=== PATIENT | male | born 1990 | race African-American/Black ===

== ENCOUNTER 2017-02-18 12:24 | Emergency (ER) | payer SELFPAY ==
[~2017-02-18] VITALS: Ht 180.3 cm; Wt 69.0 kg
[~2017-02-18 12:24] MED LIST: BACT800T5 PO; IBUP800T23 PO; METR500T10 PO
[2017-02-18 12:28] VITALS: BP 138/79; PULSE 14; PULSE 74; RESP 12; TEMP 98.5; O2SAT 99
[2017-02-18 12:49] LABS: GLUCOSE,URINE NEG (NEG); KETONE, URINE NEG (NEG); NITRITE,URINE NEG (NEG)
[2017-02-18 12:51] LABS: BLOOD, URINE MOD (NEG)
--- NOTE | 2017-02-18 12:56 | PD ---
HPI Chief Complaint: Complaint Time Seen by Provider: 12:47 Travel History International Travel<30 days: No Contact w/Intl Traveler<30days: No Traveled to known affect area: No History of Present Illness HPI This patient complains of some urethral discharge and dysuria for 2 days. Severity is mild. No alleviating factors. Denies fever or abdominal pain. PFSH Past Medical History Medical History: Denies Significant Hx Diminished Hearing: No Tetanus Vaccination: < 5 Years Influenza Vaccination: Yes Past Surgical History Surgical History: No Previous Surgery Social History Alcohol Use: No Tobacco Use: No Substance Use: No Allergies-Medications (Allergen,Severity, Reaction): Coded Allergies: No Known Allergies (Verified , 02/18/17) Reported Meds & Prescriptions Reported Meds & Active Scripts Active No Active Prescriptions or Reported Medications Review of Systems General / Constitutional: No: Fever HENT: No: Headaches Cardiovascular: No: Chest Pain or Discomfort Physical Exam Narrative GASTROINTESTINAL: Abdomen soft, non-tender, nondistended. Positive bowel sounds. No hepato-splenomegaly, or palpable masses. No guarding. SKIN: Focused skin assessment reveals no rash or ulcers. Skin is warm and dry. Palpation shows no induration or nodules. : No obvious penile lesions. Circumcised penis. No testicular tenderness Data Data Last Documented VS Vital Signs Date Time Temp Pulse Resp B/P Pulse Ox O2 Delivery O2 Flow Rate FiO2 02/18/17 12:28 98.5 74 12 138/79 99 Orders Urinalysis - C+S If Indicated (02/18/17 12:35) Labs Laboratory Tests Test 02/18/17 12:30 Urine pH 6.0 Urine Protein TRACE mg/dL Urine Glucose (UA) NEG mg/dL Urine Ketones NEG mg/dL Urine Occult Blood MOD Urine Nitrite NEG Urine Bilirubin NEG Urine Leukocyte Esterase MOD MDM Medical Decision Making Medical Screen Exam Complete: Yes Emergency Medical Condition: Yes Medical Record Reviewed: Yes Differential Diagnosis Urethritis, STD, UTI Narrative Course I have reviewed the patient's electronic medical record. Presentation is consistent with urethritis I gave him Rocephin injection and 1 g of oral Zithromax Recommend primary care or health Department STD testing Diagnosis Primary Impression: Urethritis Additional Instructions: Follow up with health department or primary care for STD testing Med/Other Pt SpecificInfo: Other Scripts No Active Prescriptions or Reported Meds Disposition: 01 DISCHARGE HOME Condition: Stable Kocisko,Tripp J. MD February 18, 2017 12:56
[2017-02-18 12:58] LABS: BACTERIA, URINE OCC /hpf; COMMENT (UR) CULTURE INDICATED; CULTURE IF INDICATED CULTURE INDICATED; MUCUS URINE FEW /lpf (OCC); RBC, URINE 0-3 /hpf (0-3); URINE COLOR YELLOW (YELLW/STRAW)
[2017-02-18] MEDS ORDERED: AZITHROMYCIN PWD FOR SUSP 1 GM PACKET PO ONE (13:00)
[2017-02-18] MEDS ORDERED: LIDOCAINE HCL 1% PF 30 ML VIAL XX ONE (13:00)
== END 2017-02-18 13:45 | disposition home or self-care (01) ==
LOC: PHED 12:24
DX: N34.2 Other urethritis (principal)
CPT/HCPCS: 81001; 87086; 96372; 99283; J0696

== ENCOUNTER 2018-03-10 18:04 | Emergency (ER) | payer SELFPAY ==
[~2018-03-10] VITALS: Ht 180.3 cm; Wt 65.0 kg
[2018-03-10 18:26] VITALS: BP 136/67; PULSE 82; RESP 16; TEMP 98.7; O2SAT 98
[2018-03-10] MEDS ORDERED: ONDANSETRON ODT 4 MG TAB PO ONE (18:30)
[2018-03-10] MEDS ORDERED: SODIUM CHLOR 0.9% 1000 ML INJ 1,000 ML IV ONE (18:30)
--- NOTE | 2018-03-10 18:55 | RADRPT ---
EXAM DATE: 03/10/2018 6:45 PM EDT AGE/SEX: 27 years / Male INDICATIONS: Chest pain today. CLINICAL DATA: This is the patient's initial encounter. Patient reports that signs and symptoms have been present for 1 day and indicates a pain score of 10/10. MEDICAL/SURGICAL HISTORY: None. None. COMPARISON: No prior [facility] exams available for comparison. FINDINGS: A single AP view of the chest demonstrates the lungs to be symmetrically aerated without evidence of mass, infiltrate or effusion. The cardiomediastinal contours are unremarkable. Osseous structures a re intact. CONCLUSION: Negative examination. Electronically signed by: Leonard Hyde MD 03/10/2018 6:54 PM EDT
[2018-03-10 18:57] LABS: BASOPHIL % 0.4 % (0.0-2.0); EOSINOPHIL # 0.1 TH/MM3 (0-0.4); EOSINOPHIL % 0.7 % (0.0-4.0); HEMATOCRIT 40.7 % (39.0-51.0); HEMOGLOBIN 13.5 GM/DL (13.0-17.0); LYMPH % 26.9 % (9.0-44.0); LYMPHOCYTE # 2.8 TH/MM3 (1.0-4.8); MEAN CELL VOLUME 91.1 FL (80.0-100.0); MEAN CORPUSCULAR HEMOGLOBIN 30.3 PG (27.0-34.0); MEAN CORPUSCULAR HGB CONC 33.2 % (32.0-36.0); MONO % 5.2 % (0.0-8.0); MONOCYTE # 0.5 TH/MM3 (0-0.9); NEUT % 66.8 % (16.0-70.0); PLATELET COUNT 159 TH/MM3 (150-450); RED BLOOD COUNT 4.46 MIL/MM3 (4.50-5.90); RED CELL DISTRIBUTION WIDTH 13.4 % (11.6-17.2); WHITE BLOOD COUNT 10.5 TH/MM3 (4.0-11.0)
[2018-03-10 19:00] VITALS: BP 123/68; PULSE 87; RESP 18; O2SAT 99
--- NOTE | 2018-03-10 19:07 | PD ---
HPI Chief Complaint: Alcohol/Drug Intoxication Time Seen by Provider: 18:28 Travel History International Travel<30 days: No Contact w/Intl Traveler<30days: No Traveled to known affect area: No History of Present Illness HPI Patient is a 27 year old male who comes in after smoking marijuana today. He says he developed chest pain with nausea and vomiting. He says he has smoked marijuana in the past without any issue. He does not know who is laced with anything. He was given some fluids by EMS prior to arrival and says he is feeling better. He now only has nausea. He does complain of some upper abdominal pain. He denies any other drug use. He says he is feeling fine prior to smoking marijuana. Severity is mild. [facility] Past Medical History Medical History: Denies Significant Hx Diminished Hearing: No Immunizations Current: Yes Tetanus Vaccination: < 5 Years Influenza Vaccination: No Past Surgical History Surgical History: No Previous Surgery Social History Alcohol Use: No Tobacco Use: No Substance Use: Yes (MARIJUANA SOMETIMES) Allergies-Medications (Allergen,Severity, Reaction): Coded Allergies: No Known Allergies (Verified Adverse Reaction, Unknown, 03/10/18) Reported Meds & Prescriptions Reported Meds & Active Scripts Active No Active Prescriptions or Reported Medications Review of Systems Except as stated in HPI: all other systems reviewed are Neg General / Constitutional: No: Fever, Chills Eyes: No: Blurred Vision HENT: No: Headaches, Lightheadedness Respiratory: No: Shortness of Breath Gastrointestinal: Positive: Nausea Genitourinary: No: Dysuria Musculoskeletal: No: Myalgias, Edema Skin: No Rash, No Change in Pigmentation Neurologic: No: Weakness, Dizziness Physical Exam Narrative GENERAL: Awake and alert, no acute distress. SKIN: Focused skin assessment warm/dry. No wounds or signs of infection. HEAD: Atraumatic. Normocephalic. EYES: Pupils equal and round. No scleral icterus. ENT: Mucous membranes pink and moist. NECK: Trachea midline. No JVD. CARDIOVASCULAR: Regular rate and rhythm. No murmur appreciated. RESPIRATORY: No accessory muscle use. Clear to auscultation. Breath sounds equal bilaterally. GASTROINTESTINAL: Abdomen soft, nondistended. Mild tenderness to the epigastric area. No rebound or guarding. MUSCULOSKELETAL: No obvious deformities. No clubbing. No cyanosis. No edema. NEUROLOGICAL: Awake and alert. No obvious cranial nerve deficits. Motor grossly within normal limits. Normal speech. PSYCHIATRIC: Appropriate mood and affect; insight and judgment normal. Data Data Last Documented VS Vital Signs Date Time Temp Pulse Resp B/P (MAP) Pulse Ox O2 Delivery O2 Flow Rate FiO2 03/10/18 18:26 98.7 82 16 136/67 (90) 98 Orders Orders Iv Access Insert/Monitor (03/10/18 18:29) Complete Blood Count With Diff (03/10/18 18:29) Comprehensive Metabolic Panel (03/10/18 18:29) Troponin I (03/10/18 18:29) Chest, Single Ap (03/10/18 ) Lipase (03/10/18 18:29) Sodium Chlor 0.9% 1000 Ml Inj (Ns 1000 M (03/10/18 18:30) Ondansetron Odt (Zofran Odt) (03/10/18 18:30) Labs Laboratory Tests Test 03/10/18 18:30 White Blood Count 10.5 TH/MM3 Red Blood Count 4.46 MIL/MM3 Hemoglobin 13.5 GM/DL Hematocrit 40.7 % Mean Corpuscular Volume 91.1 FL Mean Corpuscular Hemoglobin 30.3 PG Mean Corpuscular Hemoglobin Concent 33.2 % Red Cell Distribution Width 13.4 % Platelet Count 159 TH/MM3 Mean Platelet Volume 11.0 FL Neutrophils (%) (Auto) 66.8 % Lymphocytes (%) (Auto) 26.9 % Monocytes (%) (Auto) 5.2 % Eosinophils (%) (Auto) 0.7 % Basophils (%) (Auto) 0.4 % Neutrophils # (Auto) 7.0 TH/MM3 Lymphocytes # (Auto) 2.8 TH/MM3 Monocytes # (Auto) 0.5 TH/MM3 Eosinophils # (Auto) 0.1 TH/MM3 Basophils # (Auto) 0.0 TH/MM3 CBC Comment DIFF FINAL Differential Comment MDM Medical Decision Making Medical Screen Exam Complete: Yes Emergency Medical Condition: Yes Medical Record Reviewed: Yes Interpretation(s) ECG shows normal sinus rhythm at a rate of 76, no ST elevation or depression, normal intervals Differential Diagnosis Drug reaction versus dehydration versus electrolyte abnormality versus pancreatitis versus gastritis Narrative Course Patient is a 27-year-old male who comes in complaining of chest pain and nausea after smoking marijuana. Exam shows mild epigastric tenderness. IV established , labs sent. Patient given IV fluids and Zofran. Chest x-ray shows no acute abnormalities. Last 24 hours Impressions Chest X-Ray 03/10/18 0000 Signed Impressions: CONCLUSION: Negative examination. Patient signed out to Dr. Gibson to follow-up labs and disposition the patient. Scripts No Active Prescriptions or Reported Meds Pao Saez MD Mar 10, 2018 19:07
--- NOTE | 2018-03-10 19:18 | PD ---
Physical Exam Date Seen by Provider: Mar 10, 2018 Time Seen by Provider: 19:16 Narrative The patient is a 27-year-old male who was initially evaluated by the previous physician, Dr. Palencia. Please refer to the initial history, physical, diagnostic evaluation, and treatment modality plan. The patient was signed out as 7 PM laboratory evaluation and re-evaluation pending. Data Data Last Documented VS Vital Signs Date Time Temp Pulse Resp B/P (MAP) Pulse Ox O2 Delivery O2 Flow Rate FiO2 03/10/18 19:00 87 18 123/68 (86) 99 Room Air 03/10/18 18:26 98.7 Orders Orders Iv Access Insert/Monitor (03/10/18 18:29) Complete Blood Count With Diff (03/10/18 18:29) Comprehensive Metabolic Panel (03/10/18 18:29) Troponin I (03/10/18 18:29) Chest, Single Ap (03/10/18 ) Lipase (03/10/18 18:29) Sodium Chlor 0.9% 1000 Ml Inj (Ns 1000 M (03/10/18 18:30) Ondansetron Odt (Zofran Odt) (03/10/18 18:30) Troponin I (03/10/18 21:30) Electrocardiogram (03/10/18 17:32) Labs Laboratory Tests Test 03/10/18 18:30 03/10/18 21:20 White Blood Count 10.5 TH/MM3 Red Blood Count 4.46 MIL/MM3 Hemoglobin 13.5 GM/DL Hematocrit 40.7 % Mean Corpuscular Volume 91.1 FL Mean Corpuscular Hemoglobin 30.3 PG Mean Corpuscular Hemoglobin Concent 33.2 % Red Cell Distribution Width 13.4 % Platelet Count 159 TH/MM3 Mean Platelet Volume 11.0 FL Neutrophils (%) (Auto) 66.8 % Lymphocytes (%) (Auto) 26.9 % Monocytes (%) (Auto) 5.2 % Eosinophils (%) (Auto) 0.7 % Basophils (%) (Auto) 0.4 % Neutrophils # (Auto) 7.0 TH/MM3 Lymphocytes # (Auto) 2.8 TH/MM3 Monocytes # (Auto) 0.5 TH/MM3 Eosinophils # (Auto) 0.1 TH/MM3 Basophils # (Auto) 0.0 TH/MM3 CBC Comment DIFF FINAL Differential Comment Blood Urea Nitrogen 11 MG/DL Creatinine 0.99 MG/DL Random Glucose 136 MG/DL Total Protein 7.0 GM/DL Albumin 3.7 GM/DL Calcium Level 8.5 MG/DL Alkaline Phosphatase 64 U/L Aspartate Amino Transf (AST/SGOT) 14 U/L Alanine Aminotransferase (ALT/SGPT) 16 U/L Total Bilirubin 0.3 MG/DL Sodium Level 141 MEQ/L Potassium Level 3.3 MEQ/L Chloride Level 107 MEQ/L Carbon Dioxide Level 22.9 MEQ/L Anion Gap 11 MEQ/L Estimat Glomerular Filtration Rate 112 ML/MIN Troponin I LESS THAN 0.02 NG/ML LESS THAN 0.02 NG/ML Lipase 71 U/L MDM Medical Record Reviewed: Yes Supervised Visit with TYRELL: No Interpretation(s) EKG reveals normal sinus rhythm with a rate of 76 by voltage criteria. Nonspecific T-wave changes. Last Impressions Chest X-Ray 03/10/18 0000 Signed Impressions: CONCLUSION: Negative examination. Laboratory Tests Test 03/10/18 18:30 03/10/18 21:20 White Blood Count 10.5 TH/MM3 Red Blood Count 4.46 MIL/MM3 Hemoglobin 13.5 GM/DL Hematocrit 40.7 % Mean Corpuscular Volume 91.1 FL Mean Corpuscular Hemoglobin 30.3 PG Mean Corpuscular Hemoglobin Concent 33.2 % Red Cell Distribution Width 13.4 % Platelet Count 159 TH/MM3 Mean Platelet Volume 11.0 FL Neutrophils (%) (Auto) 66.8 % Lymphocytes (%) (Auto) 26.9 % Monocytes (%) (Auto) 5.2 % Eosinophils (%) (Auto) 0.7 % Basophils (%) (Auto) 0.4 % Neutrophils # (Auto) 7.0 TH/MM3 Lymphocytes # (Auto) 2.8 TH/MM3 Monocytes # (Auto) 0.5 TH/MM3 Eosinophils # (Auto) 0.1 TH/MM3 Basophils # (Auto) 0.0 TH/MM3 CBC Comment DIFF FINAL Differential Comment Blood Urea Nitrogen 11 MG/DL Creatinine 0.99 MG/DL Random Glucose 136 MG/DL Total Protein 7.0 GM/DL Albumin 3.7 GM/DL Calcium Level 8.5 MG/DL Alkaline Phosphatase 64 U/L Aspartate Amino Transf (AST/SGOT) 14 U/L Alanine Aminotransferase (ALT/SGPT) 16 U/L Total Bilirubin 0.3 MG/DL Sodium Level 141 MEQ/L Potassium Level 3.3 MEQ/L Chloride Level 107 MEQ/L Carbon Dioxide Level 22.9 MEQ/L Anion Gap 11 MEQ/L Estimat Glomerular Filtration Rate 112 ML/MIN Troponin I LESS THAN 0.02 NG/ML LESS THAN 0.02 NG/ML Lipase 71 U/L Differential Diagnosis Differential diagnosis includes medication side effect, polysubstance abuse, marijuana abuse, sympathomimetic crisis, dehydration, acute kidney injury, ACS, pulmonary embolism, GERD, esophageal spasm, esophagitis, pneumonitis. Narrative Course The patient was initially evaluated by the previous physician. Please refer to the initial history, physical, diagnostic evaluation, and treatment modality plan. The patient was signed out at 7 PM laboratory evaluation pending. Chest x-ray was negative. Chest x-ray is unremarkable. The patient's serial troponins are negative. The patient's heart rate came down into the 70s. The patient is medically cleared to be evaluated on an outpatient basis. Diagnosis Primary Impression: Marijuana use Additional Impression: Nausea & vomiting Qualified Codes: R11.2 - Nausea with vomiting, unspecified Patient Instructions: General Instructions Additional Instruction: Stop smoking marijuana. Follow-up with her primary physician. Return if symptoms worsen or progress. Phenergan as needed for nausea and vomiting, clear liquid diet and advance as tolerated. Med/Other Pt SpecificInfo: Prescription(s) given Scripts Promethazine (Phenergan) 25 Mg Tablet 25 MG PO Q6H Y for NAUSEA OR VOMITING, #10 TAB 0 Refills Prov: Tyler Gibson MD 03/10/18 Disposition: DISCHARGE HOME Condition: Stable Tyler Gibson MD Mar 10, 2018 19:18
[2018-03-10 19:30] LABS: ALBUMIN 3.7 GM/DL (3.4-5.0); AST (GOT) 14 U/L (15-37); BICARBONATE 22.9 MEQ/L (21.0-32.0); BLOOD UREA NITROGEN 11 MG/DL (7-18); CALCIUM 8.5 MG/DL (8.5-10.1); CHLORIDE 107 MEQ/L (98-107); CREATININE 0.99 MG/DL (0.60-1.30); GLOMERULAR FILTRATION RATE 112 ML/MIN (>89); GLUCOSE,RANDOM 136 MG/DL (74-106); SODIUM (NA) 141 MEQ/L (136-145)
[2018-03-10 19:31] LABS: ALT (GPT) 16 U/L (12-78)
[2018-03-10 19:35] LABS: ALKALINE PHOSPHATASE 64 U/L (45-117); TOTAL BILIRUBIN ADULT 0.3 MG/DL (0.2-1.0); TROPONIN I LESS THAN 0.02 NG/ML (0.02-0.05)
[2018-03-10 20:00] VITALS: BP 124/68; PULSE 64; RESP 19; O2SAT 99
[2018-03-10 21:00] VITALS: BP 117/59; PULSE 62; RESP 17; O2SAT 99
[2018-03-10 22:00] VITALS: BP 116/59; PULSE 70; RESP 16; O2SAT 100
[2018-03-10] MEDS ORDERED: PROM25TA10 PO (22:02)
[2018-03-10 22:33] VITALS: BP 115/60
--- NOTE | 2018-03-11 15:23 | EKG ---
Date Performed: 03/10/2018 Time Performed: 17:32:03 PTAGE: 27 years EKG: Sinus rhythm MODERATE VOLTAGE CRITERIA FOR LVH, CONSIDER NORMAL VARIANT NONSPECIFIC T-WAVE ABNORMALITY BORDERLINE ECG NO PREVIOUS TRACING DOCTOR: Abena Turner Interpretating Date/Time 03/11/2018 15:21:17
== END 2018-03-10 22:50 | disposition home or self-care (01) ==
LOC: NEPE 18:04
DX: F12.90 Cannabis use, unspecified, uncomplicated (principal); R11.2 Nausea with vomiting, unspecified; R07.9 Chest pain, unspecified
CPT/HCPCS: 71045; 80053; 83690; 84484; 85025; 93005; 96360; 99285; J7030